=== PATIENT | female | born 1990 | race Caucasian/White ===

== ENCOUNTER 2017-12-04 17:12 | Emergency (ER) | payer SELFPAY ==
[~2017-12-04] VITALS: Ht 167.6 cm; Wt 70.0 kg
[2017-12-04 17:29] VITALS: BP 123/86; PULSE 96; RESP 18; TEMP 98.7; O2SAT 100
--- NOTE | 2017-12-04 17:29 | PD ---
HPI Chief Complaint: Flank/Kidney Pain Time Seen by Provider: 17:25 Travel History International Travel<30 days: No Contact w/Intl Traveler<30days: No Traveled to known affect area: No History of Present Illness HPI 27 years old female complains of left flank pain. Patient states that the pain started this afternoon. Patient has history of ureteral obstruction in the past. Patient states that she had urostomy tube placement and removal in the past. Patient states that the pain localized to left flank area. Patient denies any pain radiation. Patient states that she has nausea with the pain. Patient denies any dysuria or frequency. Patient denies any vaginal discharge or bleeding. Patient denies any fever chills. PFSH Past Medical History ?: Unknown Social History Tobacco Use: No Allergies-Medications (Allergen,Severity, Reaction): Coded Allergies: No Known Allergies (Unverified , 12/04/17) Reported Meds & Prescriptions Reported Meds & Active Scripts Active Robaxin (Methocarbamol) 750 Mg Tab 750 Mg PO QID Ibuprofen 600 Mg Tab 600 Mg PO TID Review of Systems General / Constitutional: No: Fever Eyes: No: Visual changes HENT: No: Headaches Cardiovascular: No: Chest Pain or Discomfort Respiratory: No: Shortness of Breath Gastrointestinal: Positive: Nausea, Abdominal Pain Genitourinary: No: Dysuria Musculoskeletal: No: Pain Skin: No Rash Neurologic: No: Weakness Psychiatric: No: Depression Endocrine: No: Polydipsia Hematologic/Lymphatic: No: Easy Bruising Physical Exam Narrative GENERAL: Well-nourished, well-developed patient. SKIN: Focused skin assessment warm/dry. HEAD: Normocephalic. EYES: No scleral icterus. No injection or drainage. NECK: Supple, trachea midline. No JVD or lymphadenopathy. CARDIOVASCULAR: Regular rate and rhythm without murmurs, gallops, or rubs. RESPIRATORY: Breath sounds equal bilaterally. No accessory muscle use. GASTROINTESTINAL: Abdomen soft, non-tender, nondistended. MUSCULOSKELETAL: No cyanosis, or edema. BACK: Nontender without obvious deformity. No CVA tenderness. Neurologic exam normal. Data Data Last Documented VS Vital Signs Date Time Temp Pulse Resp B/P (MAP) Pulse Ox O2 Delivery O2 Flow Rate FiO2 12/04/17 19:15 12/04/17 17:29 98.7 96 18 100 Room Air Orders Orders Urinalysis - C+S If Indicated (12/04/17 17:25) Ct Abd/Pel W/O Iv Contrast (12/04/17 17:25) Sodium Chloride 0.9% Flush (Ns Flush) (12/04/17 17:30) Ed Urine Pregnancytest Poc (12/04/17 17:25) Ketorolac Inj (Toradol Inj) (12/04/17 17:30) Ed Discharge Order (12/04/17 19:13) Labs Laboratory Tests Test 12/04/17 17:31 Urine Color LIGHT-YELLOW Urine Turbidity CLEAR Urine pH 6.5 Urine Specific [place] 1.007 Urine Protein NEG mg/dL Urine Glucose (UA) NEG mg/dL Urine Ketones NEG mg/dL Urine Occult Blood TRACE Urine Nitrite NEG Urine Bilirubin NEG Urine Urobilinogen LESS THAN 2.0 MG/DL Urine Leukocyte Esterase NEG Urine RBC 2 /hpf Urine WBC LESS THAN 1 /hpf Urine Squamous Epithelial Cells 1 /hpf Microscopic Urinalysis Comment CULT NOT INDICATED MDM Medical Decision Making Medical Screen Exam Complete: Yes Emergency Medical Condition: Yes Interpretation(s) Last Impressions Abdomen/Pelvis CT 12/04/17 1725 Signed Impressions: Service Date/Time: Monday, December 04, 2017 18:07 - CONCLUSION: Mild prominence of the left renal pelvis of uncertain etiology partially an extrarenal pelvis. Fermin Pemberton MD 19 10 PM. UA is negative. Differential Diagnosis Differential diagnosis including differential diagnosis including musculoskeletal, ureteral obstruction, nephrolithiasis, pyelonephritis, ovarian cyst, ovarian torsion, ectopic . Narrative Course 27 years old female with left flank pain. History of ureteral obstruction status post urostomy tube placement and removal in the past. Diagnosis Primary Impression: Left flank pain Patient Instructions: General Instructions Additional Instructions: Take medication as needed for pain. Follow-up with personal physician. Return if worse. Med/Other Pt SpecificInfo: Prescription(s) given Scripts Methocarbamol (Robaxin) 750 Mg Tab 750 MG PO QID for Muscle Spasm, #40 TAB 0 Refills Prov: Rome Costa MD 12/04/17 Ibuprofen (Ibuprofen) 600 Mg Tab 600 MG PO TID for Pain, #30 TAB 0 Refills Prov: Rome Costa MD 12/04/17 Disposition: 01 DISCHARGE HOME Condition: Stable Rome Costa MD Dec 04, 2017 17:29
[2017-12-04] MEDS ORDERED: SODIUM CHLORIDE 0.9% FLUSH 10 ML FLUSH IV FLUSH PRN (17:30)
[2017-12-04] MEDS ORDERED: KETOROLAC TROMETHAMINE 60 MG/2 ML (IM) VIAL IM ONE (17:30)
[2017-12-04 17:52] LABS: BILIRUBIN, URINE NEG (NEG); BLOOD, URINE TRACE (NEG); GLUCOSE,URINE NEG (NEG); KETONE, URINE NEG (NEG); NITRITE,URINE NEG (NEG); PH, URINE 6.5 (5.0-8.5); SQUAMOUS EPITHELIAL CELL URINE 1 /hpf (0-5); URINE COLOR LIGHT-YELLOW (YELLW/STRAW); URINE LEUKOCYTE ESTERASE NEG (NEG)
--- NOTE | 2017-12-04 18:29 | RADRPT ---
EXAM DATE/TIME: 12/04/2017 18:07 [facility] COMPARISON: No previous studies available for comparison. INDICATIONS : Left flank pain, difficulty urinating. ORAL CONTRAST: No oral contrast ingested. RADIATION DOSE: 8.49 CTDIvol (mGy) MEDICAL HISTORY : None SURGICAL HISTORY : Nephrostomy tube removed 8 months ago. ENCOUNTER: Initial ACUITY: 1 day PAIN SCALE: 7/10 LOCATION: Left flank TECHNIQUE: Volumetric scanning of the abdomen and pelvis was performed. Using automated exposure control and adjustment of the mA and/or kV according to patient size, radiation dose was kept as low as reasonably achievable to obtain optimal diagnostic quality images. DICOM format image data is av ailable electronically for review and comparison. FINDINGS: CT Abdomen: The liver, spleen, pancreas, right kidney, adrenals are unremarkable. The left renal pelv is is prominent and the left proximal ureter is slightly dilated, however no definite stones are iden tified. The etiology for this is not certain. There is no evidence for any appreciable pathological a denopathy, free fluid, or bowel obstruction. CT pelvis: There is no evidence for mass, abscess formation, or any significant adenopathy within the pelvis. There is a tiny amount of fluid in the cul-de-sac. CONCLUSION: Mild prominence of the left renal pelvis of uncertain etiology partially an extrarena l pelvis. KZainab Pemberton MD on December 04, 2017 at 18:23 Board Certified Radiologist. This report was verified electronically.
[2017-12-04] MEDS ORDERED: ROBA750T PO (19:13)
[2017-12-04] MEDS ORDERED: IBUP-232 PO (19:13)
== END 2017-12-04 19:25 | disposition home or self-care (01) ==
LOC: NEPD 17:12
DX: R10.9 Unspecified abdominal pain (principal); R11.0 Nausea; Z79.899 Other long term (current) drug therapy
CPT/HCPCS: 74176; 81001; 84703; 96372; 99284; J1885